=== PATIENT | male | born 2000 | race Caucasian/White ===

== ENCOUNTER 2022-11-13 08:52 | Day surgery (SDC) | payer MEDICAID ==
[2022-11-09 10:22] LABS: BASOPHILS % (AUTO) 0.5 % (0-1); EOSINOPHILS % (AUTO) 0.3 % (0-6); HEMATOCRIT 46.4 % (42.0-52.0); HEMOGLOBIN 15.5 g/dl (14.0-17.9); LYMPHOCYTES # (AUTO) 0.9 X10'3 (1.1-4.8); LYMPHOCYTES % (AUTO) 21.8 % (21-51); MEAN CORPUSCULAR HEMOGLOBIN 30.8 PG (27.0-31.0); MEAN CORPUSCULAR HGB CONC 33.4 g/dL (33.0-36.5); MEAN CORPUSCULAR VOLUME 92.3 FL (78-98); MEAN PLATELET VOLUME 8.8 FL (7.4-10.4); MONOCYTES # (AUTO) 0.5 X10'3 (0-0.9); MONOCYTES % (AUTO) 11.7 % (2-12); NEUTROPHILS # (AUTO) 2.8 X10'3 (1.8-7.7); NEUTROPHILS % (AUTO) 65.7 % (42-75); PLATELET COUNT 171 X10'3 (140-440); RED BLOOD COUNT 5.03 X10'6 (4.70-6.10); RED CELL DISTRIBUTION WIDTH 15.1 % (11.5-14.5); WHITE BLOOD COUNT 4.2 X10'3 (4.5-11.0)
[2022-11-09 10:34] LABS: ALANINE AMINOTRANSFERASE 145 U/L (12-78); ALBUMIN 4.2 G/DL (3.4-5.0); ALBUMIN/GLOBULIN RATIO 1.2 (1.1-1.5); ALKALINE PHOSPHATASE 96 IU/L (46-116); ANION GAP 7 (8-16); ASPARTATE AMINO TRANSFERASE 105 U/L (10-37); BILIRUBIN,TOTAL 0.6 MG/DL (0.1-1.0); BLOOD UREA NITROGEN 12 MG/DL (7-18); BUN/CREATININE RATIO 14.6 (10.0-20.0); CALCIUM 9.2 MG/DL (8.5-10.1); CHLORIDE 104 MMOL/L (99-107); CREATININE 0.82 MG/DL (0.60-1.10); GLUCOSE 114 MG/DL (70-104); POTASSIUM 3.6 MMOL/L (3.5-5.1); SODIUM 142 MMOL/L (135-145); TOTAL CARBON DIOXIDE 30.6 MMOL/L (24-32); TOTAL PROTEIN 7.8 G/DL (6.4-8.2); eGFR > 90 ML/MIN
[~2022-11-13] VITALS: Ht 200.7 cm; Wt 101.5 kg
[~2022-11-13 08:52] MED LIST: BUPIVAcaine/PF 2.5mg/ml (0.25%) 10ml vial ONE; IBUP-24 PO; cefazolin 2gm/D5W 100mL 100 ML IV ONE; famotidine 20mg tablet PO ONE; ringers solution, lacted 1,000 ML IV SCH
[2022-11-13 09:00] VITALS: BP 145/98; PULSE 106; RESP 16; TEMP 98.1; O2SAT 100
[2022-11-13] MEDS ORDERED: LIDOcaine 0.5% (5mg/ml) 50ml vial ONE (09:59)
[2022-11-13] MEDS ORDERED: fentaNYL/PF 50MCG/1 ML 2ML syringe ONE (10:01)
[2022-11-13] MEDS ORDERED: midazolam 1 mg/ML 2ml injection ONE ×2 (10:02→10:20)
[2022-11-13] MEDS ORDERED: propofol inj 20 ML IV ONE (10:19)
[2022-11-13 11:06] VITALS: BP 132/88; PULSE 92; RESP 16; O2SAT 95
[2022-11-13 11:10] VITALS: BP 135/95; PULSE 89; RESP 16; O2SAT 95
--- NOTE | 2022-11-13 11:12 | NUR ---
Received from OR via [facility], accompanied by Anesthesiologist DR MATA and report given by Anesthesiologist. PT IS AWAKE, TALKING AND FOLLOWING COMMANDS. PT PLACED ON BEDSIDE MONITOR, VSS. PT IS IN SR WITH RATE IN 90'S. PT IS ON RA AND TOLERATING WELL WITH O2 SAT> 95%. PT HAS 20G PIV TO LEFT HAND WITH LR INFUSING ORDERED. PT HAS SPLINT TO RT HAND THAT IS CDI, ICD PACK IN PLACE. PT DENIES PAIN AT THIS TIME. WILL CONTINUE TO ASSESS
[2022-11-13 11:20] VITALS: BP 134/90; PULSE 91; RESP 14; O2SAT 96
--- NOTE | 2022-11-13 11:20 | NUR ---
SPOKE TO SOMEONE IN DR DONOVAN'S OFFICE, SHE STATED THAT PT DID NOT HAVE RX FOR PAIN MEDS SENT TO PHARMACY AND THAT SHE WOULD HAVE DR DONOVAN COMPLETE OR THE PA. PT'S PHARMACY VERIFIED WITH OFFICE NATTY ON [employer]. PT INSTRUCTED TO CALL PHARMACY TO VERIFY RX AND IF THEY DO NOT RECEIVE ONE, CALL HERE OR DR DONOVAN'S OFFICE
[2022-11-13 11:30] VITALS: BP 128/86; PULSE 94; RESP 18; O2SAT 95
[2022-11-13] MEDS ORDERED: meperidine/PF 25mg/ml syringe IV PRN ×3 (11:35)
[2022-11-13] MEDS ORDERED: morphine 4 MG/ML inj SYRINge IV PRN (11:35)
[2022-11-13] MEDS ORDERED: ondansetron/PF 4mg/2ml inj IV PRN (11:35)
[2022-11-13] MEDS ORDERED: morphine 2 MG/ML inj. syringe IV PRN (11:35)
[2022-11-13] MEDS ORDERED: ringers solution, lacted 1,000 ML IV SCH (11:35)
[2022-11-13] MEDS ORDERED: proCHLORperazine 10 MG/2 ml inj IV PRN (11:35)
[2022-11-13 11:40] VITALS: BP 126/92; PULSE 94; RESP 12; O2SAT 95
--- NOTE | 2022-11-13 12:05 | NUR ---
ALL DISCHARGE CRITERIA HAS BEEN MET. VSS, PAIN AT A TOLERABLE LEVEL AND ABLE TO SAFELY AMBULATE AND TRANSFER SELF. IV TAKEN OUT WITHOUT ANY COMPLICATIONS. ALL DISCHARGE INSTRUCTIONS COVERED WITH PATIENT AND ALL QUESTIONS ANSWERED. PATIENT TAKEN OUT VIA WHEELCHAIR TO PERSONAL VEHICLE WHERE ROSSANA SPARROW DROVE PATIENT HOME.
== END 2022-11-13 11:45 | disposition home or self-care (01) ==
LOC: PAS 08:52
PROVIDERS: ATTEND Orthopaedic Surgery Hand Surgery
DX: S66.320A Laceration of extensor muscle, fascia and tendon of right index finger at wrist and hand level, initial encounter (principal); S66.322A Laceration of extensor muscle, fascia and tendon of right middle finger at wrist and hand level, initial encounter; W25.XXXA Contact with sharp glass, initial encounter; Y93.89 Activity, other specified; Y92.89 Other specified places as the place of occurrence of the external cause; Y99.8 Other external cause status
CPT/HCPCS: 26418; 36415; 80053; 85025; J0690; J2250; J2704; J3010; J3490; J7030; J7120; Z7506; Z7512; A4215; A4618; A7000